=== PATIENT | male | born 1960 | race Caucasian/White ===

== ENCOUNTER 2017-02-10 12:46 | Emergency (ER) | payer MEDICARE ==
[~2017-02-10 12:46] MED LIST: ALBUTEROL S5 MG/1 ML INH; ALDACTONE 25MG25 MG PO; ASPIRIN81 MG PO; BRILINTA90 MG PO; DIGOX125 MCG PO; GLUCOPHAGE1000 MG PO; IMDUR ER TAB 3030 MG PO; LANOXIN TAB0.125 MG PO; LANTUS INS100 UTS/M1 SQ; LASIX20 MG PO; LASIX40 MG PO; LIPITOR TAB 1010 MG PO; LISINOPRIL5 MG PO; METOPROLOL TART25 MG PO; PLAVIX 75 MG TA75 MG PO; ZANTAC150 MG PO; ZESTRIL5 MG PO
[2017-06-04] MEDS ORDERED: CELEXA10 MG PO (04:26)
[2017-06-04] MEDS ORDERED: POLYSACCHARIDE150 MG PO (04:27)
[2017-06-04] MEDS ORDERED: NEURONTIN 300300 MG PO (04:29)
[2017-06-04] MEDS ORDERED: ENTRESTO PO (04:29)
[2017-06-04] MEDS ORDERED: COREG 3.125M3.125 MG PO (04:30)
[2017-06-12] MEDS ORDERED: METOPROLOL TART25 MG PO (13:12)
[2017-06-12] MEDS ORDERED: MIDODRINE HCL10 MG PO (13:13)
[2017-06-12] MEDS ORDERED: ALDACTONE25 MG PO (13:16)
[2017-06-25] MEDS ORDERED: IMDUR ER TAB 3030 MG PO (00:29)
[2017-06-25] MEDS ORDERED: COREG 3.125M3.125 MG PO (00:30)
[2017-06-25] MEDS ORDERED: LASIX 40 MG TAB40 MG PO (00:30)
[2017-06-25] MEDS ORDERED: ENTRESTO PO (00:36)
== END 2017-02-10 17:00 | disposition left against medical advice (07) ==
LOC: ER1 12:46
DX: Z53.21 Procedure and treatment not carried out due to patient leaving prior to being seen by health care provider (principal)